=== PATIENT | male | born 1990 | race Two or more races ===

== ENCOUNTER 2021-01-05 14:57 | Emergency (ER) | payer OTHER ==
[2021-01-05 16:53] LABS: BASOPHIL 0.5 % (0-2); EOSINOPHIL 7.3 % (0-5); HCT 47.8 % (42.0-52.0); HGB 16.1 g/dl (13.2-18.0); LYMPHOCYTE 20.6 % (15-48); MCH 29.9 pg (25.0-31.0); MCHC 33.7 g/dL (32.0-36.0); MCV 88.8 fL (78.0-100.0); MONOCYTE 7.1 % (0-12); MPV 9.1 fL (6.0-9.5); NRBC 0; PLT 370 K/uL (150-400); RBC 5.38 M/uL (4.70-6.00); RDW 13.3 % (11.5-14.0); WBC 12.1 K/uL (4.0-10.5)
[2021-01-05 16:57] LABS: INFLUENZA A NAA NEGATIVE (NEGATIVE)
[2021-01-05 16:59] LABS: CORONAVIRUS 2019 SARS-COV-2 POSITIVE (NEGATIVE)
[2021-01-05 17:08] LABS: BUN/CREAT RATIO (CALC) 17.6 RATIO; CREATININE 0.68 mg/dL (0.67-1.17); POTASSIUM 3.6 mmol/L (3.5-5.1)
[2021-01-05 18:58] LABS: BILIRUBIN NEGATIVE (NEGATIVE); BLOOD NEGATIVE Ery/uL (NEGATIVE); CLARITY CLEAR (CLEAR); COLOR YELLOW (YELLOW); GLUCOSE (U) NORMAL (NORMAL); LEUKOCYTES NEGATIVE Leu/uL (NEGATIVE); NITRITE NEGATIVE (NEGATIVE); PROTEIN NEGATIVE (NEGATIVE); SPECIFIC GRAVITY 1.025 (1.001-1.030)
[2021-01-05 18:59] LABS: BARBITURATES NEGATIVE (NEGATIVE); ECSTASY (MDMA) NEGATIVE (NEGATIVE); MARIJUANA (THC) NEGATIVE (NEGATIVE); METHADONE NEGATIVE (NEGATIVE); OPIATES NEGATIVE (NEGATIVE)
[2021-01-05 19:00] LABS: AMPHETAMINES NEGATIVE (NEGATIVE); OXYCODONE NEGATIVE (NEGATIVE)
[2021-01-05] MEDS ORDERED: PREDNISONE 20MG20 MG PO (19:14)
[2021-01-05] MEDS ORDERED: VENTOLIN HFA IN18 GM INH (19:14)
== END 2021-01-05 19:52 | disposition home or self-care (01) ==
LOC: FER 14:57
PROVIDERS: Emergency Medicine; Nurse Practitioner Family
DX: U07.1 COVID-19 (principal); F17.210 Nicotine dependence, cigarettes, uncomplicated
CPT/HCPCS: 36415; 36600; 71046; 80048; 80305; 81003; 82803; 85025; 85379; 94640; 94664; J2930; J7030; U0002